=== PATIENT | male | born 1965 | race Asian ===

== ENCOUNTER 2018-11-10 21:09 | Inpatient (IN) | payer MEDICARE, MEDICAID ==
[~2018-11-10] VITALS: Ht 157.5 cm; Wt 82.5 kg
[2018-11-10] MEDS ORDERED: aspirin 81mg tab.chew PO ONE (21:55)
[2018-11-10 22:21] LABS: BASOPHILS % (AUTO) 0.5 % (0-1); EOSINOPHILS # (AUTO) 0.1 X10'3 (0-0.9); EOSINOPHILS % (AUTO) 1.3 % (0-6); HEMATOCRIT 42.1 % (42.0-52.0); HEMOGLOBIN 14.4 g/dl (14.0-17.9); LYMPHOCYTES # (AUTO) 2.7 X10'3 (1.1-4.8); LYMPHOCYTES % (AUTO) 43.8 % (21-51); MEAN CORPUSCULAR HEMOGLOBIN 32.7 PG (27.0-31.0); MEAN CORPUSCULAR HGB CONC 34.2 % (33.0-36.5); MEAN CORPUSCULAR VOLUME 95.6 FL (78-98); MEAN PLATELET VOLUME 7.6 FL (7.4-10.4); MONOCYTES # (AUTO) 0.6 X10'3 (0-0.9); MONOCYTES % (AUTO) 10.3 % (2-12); NEUTROPHILS # (AUTO) 2.8 X10'3 (1.8-7.7); NEUTROPHILS % (AUTO) 44.1 % (42-75); PLATELET COUNT 164 X10'3 (140-440); RED BLOOD COUNT 4.41 X10'6 (4.70-6.10); RED CELL DISTRIBUTION WIDTH 14.3 % (11.5-14.5); WHITE BLOOD COUNT 6.2 X10'3 (4.5-11.0)
[2018-11-10 22:36] LABS: INR 2.2 INR; PARTIAL THROMBOPLASTIN TIME 33 SECONDS (22-32)
[2018-11-10 22:37] LABS: ALANINE AMINOTRANSFERASE 85 U/L (12-78); ALBUMIN 3.3 G/DL (3.4-5.0); ALBUMIN/GLOBULIN RATIO 0.8 (1.1-1.5); ALKALINE PHOSPHATASE 47 IU/L (46-116); ANION GAP 8 (8-16); ASPARTATE AMINO TRANSFERASE 39 U/L (10-37); BILIRUBIN,TOTAL 0.4 MG/DL (0.1-1.0); BLOOD UREA NITROGEN 17 MG/DL (7-18); BUN/CREATININE RATIO 16.5 (5.4-32.0); CALCIUM 8.4 MG/DL (8.5-10.1); CHLORIDE 104 MMOL/L (99-107); CREATININE 1.03 MG/DL (0.60-1.10); GLUCOSE 92 MG/DL (70-104); POTASSIUM 3.6 MMOL/L (3.5-5.1); SODIUM 141 MMOL/L (135-145); TOTAL CARBON DIOXIDE 28.6 MMOL/L (24-32); TOTAL PROTEIN 7.3 G/DL (6.4-8.2); eGFR 76 ML/MIN
[2018-11-10 22:39] LABS: MAGNESIUM 1.8 MG/DL (1.5-2.4)
[2018-11-11] MEDS ORDERED: COU1T PO (00:26)
[2018-11-11] MEDS ORDERED: METF500T PO (00:26)
[2018-11-11] MEDS ORDERED: PANT-47 PO (00:26)
[2018-11-11] MEDS ORDERED: FLO0.4C PO (00:26)
[2018-11-11] MEDS ORDERED: ENAL10TA78 PO (00:26)
[2018-11-11] MEDS ORDERED: METO-477 PO (00:26)
[2018-11-11] MEDS ORDERED: SPIR25TA5 PO (00:26)
[2018-11-11] MEDS ORDERED: nitroGLYCERIN 0.4mg SUBLingual tab SL PRN (01:00)
[2018-11-11] MEDS ORDERED: HYDROcodone/acetaminophen 10/325mg tab PO PRN (01:00)
[2018-11-11] MEDS ORDERED: glucagon, human recombinant 1mg kit SUBCUT PRN (01:00)
[2018-11-11] MEDS ORDERED: dextrose ORAL solution 15 GM/59 ML bottle PO PRN ×2 (01:00)
[2018-11-11] MEDS ORDERED: diphenhydrAMINE 50 mg/ml inj IV PRN (01:00)
[2018-11-11] MEDS ORDERED: ondansetron/PF 4mg/2ml inj IV PRN (01:00)
[2018-11-11] MEDS ORDERED: MESSAGE TO PHARMACY PO ONE (01:00)
[2018-11-11] MEDS ORDERED: mag hydrox/Alum hydrox/simeth 30ml oral suspension PO PRN (01:00)
[2018-11-11] MEDS ORDERED: HYDROmorphone 1 mg/ml syringe IV PRN (01:00)
[2018-11-11] MEDS ORDERED: diphenhydrAMINE 25mg capsule PO PRN (01:00)
[2018-11-11] MEDS ORDERED: aminophylline 250mg/10ml inj. IV PRN (01:00)
[2018-11-11] MEDS ORDERED: dextrose 50%-water 50ml dispensing syringe IV PRN ×2 (01:00)
[2018-11-11] MEDS ORDERED: magnesium hydroxide 30ml (MOM) UD suspension PO PRN (01:00)
[2018-11-11] MEDS ORDERED: regadenoson 0.4mg/5ml syringe IV ONE ×3 (01:00→09:00)
[2018-11-11] MEDS ORDERED: insulin Lispro (HumaLOG) vial - multi-dose SQ SCH (01:00)
[2018-11-11] MEDS ORDERED: acetaminophen 325mg tablet PO PRN ×2 (01:00)
[2018-11-11] MEDS ORDERED: morphine 4 MG/ML inj SYRINge IV PRN (01:00)
[2018-11-11] MEDS ORDERED: acetaminophen 650mg rectal suppository RC PRN (01:00)
[2018-11-11] MEDS ORDERED: bisacodyl 10mg suppository rectal RC PRN (01:00)
[2018-11-11] MEDS ORDERED: metoclopramide 5 mg/ml inj IV PRN (01:00)
[2018-11-11] MEDS ORDERED: metoprolol tartrate 1mg/ml inj IV PRN (01:00)
[2018-11-11 01:28] LABS: HEMOGLOBIN A1C 6.2 % (4.5-6.2)
[2018-11-11 01:40] LABS: PHOSPHORUS 3.5 MG/DL (2.3-4.5)
[2018-11-11 01:56] LABS: CREATININE 0.95 MG/DL (0.60-1.10); POTASSIUM 4.2 MMOL/L (3.5-5.1); eGFR 83 ML/MIN
[2018-11-11 02:02] VITALS: BP 127/93
[2018-11-11] MEDS ORDERED: warfarin 1mg tablet PO SCH ×2 (08:00→21:00)
[2018-11-11] MEDS ORDERED: tamsulosin 0.4mg capsule PO SCH (08:00)
[2018-11-11] MEDS ORDERED: spironolactone 25 MG tablet PO SCH (08:00)
[2018-11-11] MEDS ORDERED: furosemide 10 MG/1 ML 10ml inj IV SCH (08:00)
[2018-11-11] MEDS ORDERED: docusate sod 100mg capsule PO SCH (08:00)
[2018-11-11] MEDS ORDERED: pantoprazole 40mg Tablet.DR PO SCH (08:00)
[2018-11-11] MEDS ORDERED: lisinopril 10 MG tablet PO SCH (08:00)
[2018-11-11] MEDS ORDERED: metoprolol tartrate 50mg tablet PO SCH (08:00)
[2018-11-11] MEDS ORDERED: temazepam 15mg capsule PO PRN (21:00)
== END 2018-11-11 03:45 | disposition left against medical advice (07) | DRG 313 ==
LOC: ER 21:10 → ED HOLD 11-11 00:59
PROVIDERS: ADMIT Family Medicine; ATTEND Family Medicine
DX: R07.2 Precordial pain (principal); I50.33 Acute on chronic diastolic (congestive) heart failure; I11.0 Hypertensive heart disease with heart failure; I48.2 Chronic atrial fibrillation; E11.9 Type 2 diabetes mellitus without complications; I25.10 Atherosclerotic heart disease of native coronary artery without angina pectoris; Z53.21 Procedure and treatment not carried out due to patient leaving prior to being seen by health care provider; Z88.6 Allergy status to analgesic agent; Z79.01 Long term (current) use of anticoagulants; Z79.4 Long term (current) use of insulin; Z79.899 Other long term (current) drug therapy
CPT/HCPCS: 36415; 71045; 80053; 82565; 83036; 83735; 83880; 84100; 84132; 84443; 84484; 85025; 85610; 85730; 93005; 99285; G0378; J0280

== ENCOUNTER 2020-05-19 07:50 | Emergency (ER) | payer MEDICARE, MEDICAID ==
[~2020-05-19] VITALS: Ht 152.4 cm; Wt 89.1 kg
[~2020-05-19 07:50] MED LIST: COU1T PO; ENAL10TA78 PO; FLO0.4C PO; METF500T PO; METO-477 PO; PANT-47 PO; SPIR25TA5 PO
[2020-05-19] MEDS ORDERED: CEPH500C5 PO (08:30)
== END 2020-05-19 08:47 | disposition home or self-care (01) ==
LOC: ER 07:51
DX: L03.116 Cellulitis of left lower limb (principal); I48.91 Unspecified atrial fibrillation; I25.10 Atherosclerotic heart disease of native coronary artery without angina pectoris; I10 Essential (primary) hypertension; E11.9 Type 2 diabetes mellitus without complications; Z88.8 Allergy status to other drugs, medicaments and biological substances; Z79.899 Other long term (current) drug therapy; Z79.01 Long term (current) use of anticoagulants
CPT/HCPCS: 99283

== ENCOUNTER 2020-07-13 03:00 | Emergency (ER) | payer MEDICARE, MEDICAID ==
[~2020-07-13] VITALS: Ht 152.4 cm; Wt 77.3 kg
[~2020-07-13 03:00] MED LIST changes: +CEPH500C5 PO
[2020-07-13 03:04] VITALS: BP 135/101
[2020-07-13] MEDS ORDERED: dexamethasone sod phosphate 10mg/ml inj PO STA (03:11)
[2020-07-13] MEDS ORDERED: PRED20TA PO (03:20)
== END 2020-07-13 03:33 | disposition home or self-care (01) ==
LOC: ER 03:01
DX: T78.40XA Allergy, unspecified, initial encounter (principal); T38.0X5A Adverse effect of glucocorticoids and synthetic analogues, initial encounter; R06.2 Wheezing; I48.91 Unspecified atrial fibrillation; I25.10 Atherosclerotic heart disease of native coronary artery without angina pectoris; I10 Essential (primary) hypertension; E11.9 Type 2 diabetes mellitus without complications; Z88.6 Allergy status to analgesic agent; Z79.2 Long term (current) use of antibiotics; Z79.899 Other long term (current) drug therapy; X58.XXXA Exposure to other specified factors, initial encounter; Y92.89 Other specified places as the place of occurrence of the external cause
CPT/HCPCS: 99283; J1100